=== PATIENT | male | born 1975 | race Caucasian/White ===

== ENCOUNTER 2020-03-27 09:54 | Emergency (ER) | payer OTHER ==
[~2020-03-27] VITALS: Ht 177.8 cm; Wt 120.2 kg
[~2020-03-27 09:54] MED LIST: AMARYL2 M1 PO; ANDROGEL75 GM TD; BACTRIM DS TAB1 EACH PO; CELEXA20 MG PO; FLEXERIL PO; GLUCOPHAGE500 MG PO; LISINOPRIL10 MG; METHADONE HCL 110 M1 PO; METHADONE HCL5 MG PO; NEURONTIN600 MG PO; PRINIVIL40 MG PO; ROBAXIN 750 MG750 MG PO; ULTRAM 50MG TAB50 MG PO; WELLBUTRIN 75 M75 M1 PO
[2020-03-27] MEDS ORDERED: LISINOPRIL2.5 MG (10:06)
[2020-03-27] MEDS ORDERED: INSULIN (10:07)
[2020-03-27 10:36] LABS: ABSOLUTE BASOPHILS 0.1 thou/uL (0.0-0.2); ABSOLUTE EOSINOPHILS 0.1 thou/uL (0.0-0.7); ABSOLUTE LYMPHOCYTES 1.9 thou/uL (0.8-5.3); ABSOLUTE MONOCYTES 0.8 thou/uL (0.0-1.2); ABSOLUTE NEUTROPHILS 7.9 thou/uL (1.6-8.1); BASOPHILS 0.7 %; HEMATOCRIT 37.1 % (42.0-52.0); HEMOGLOBIN 12.3 gm/dL (14.0-18.0); LYMPHOCYTES 17.9 %; MCH 28.8 pg (26.0-34.0); MCHC 33.1 g/dL (28.0-37.0); MONOCYTES 7.6 %; MPV 7.3 fl. (7.2-11.1); NUCLEATED RBCS 0 /100WBC; PLATELET COUNT* 294 thou/uL (150-400); POLYS 72.8 %; RBC 4.26 mil/uL (4.50-6.00); RDW-CV 15.9 % (10.5-14.5); WBC 10.8 thou/uL (4.0-11.0)
[2020-03-27 10:46] LABS: CALCIUM 9.7 mg/dL (8.5-10.1); CREATININE 2.4 mg/dL (0.6-1.3); POTASSIUM 5.6 mmol/L (3.5-5.1)
[2020-03-27 10:47] LABS: APTT 22.3 Seconds (25.0-31.3); PROTIME 10.5 Seconds (9.20-11.50)
[2020-03-27 10:59] LABS: ALBUMIN 3.9 g/dL (3.4-5.0); TOTAL BILIRUBIN 0.4 mg/dL (<0.1-1.0); TOTAL PROTEIN 8.3 g/dL (6.4-8.2)
[2020-03-27 13:53] VITALS: BP 107/74
--- NOTE | 2020-03-27 16:15 | EKG ---
[place] [address] ELECTROCARDIOGRAM REPORT Name: ALBERTO SNYDER Nicholas Room: [facility]#: [id number] Admission: 03/27/20 Attend Phys: Discharge: 03/27/20 Date of : 71 Date of Service: 03/27/20 1004 Report #: [id number] THIS REPORT FOR: //name// [facility] ED Test Date: 2020-03-27 Test Time: 10:04:33 Pat Name: ALBERTO SNYDER Department: Room: Gender: Folder Tier: [facility] : 1975 Requested By: Warren Diaz Order Number: [id number] MD: Yousuf Hickman Measurements Intervals [place] Rate: 116 P: 59 DC: 151 QRS: 65 QRSD: 106 T: 35 QT: 323 QTc: 449 Interpretive Statements Sinus tachycardia RSR' in V1 or V2, right VCD Compared to ECG 08/19/2016 07:30:40 Sinus rate has increased Electronically Signed On 03-27-2020 16:15:26 BOOK AUTHOR by Yousuf Hickman [email or web address] <ELECTRONICALLY SIGNED> By: Yousuf Hickman MD, [facility] 03/27/20 1615 1004 1004 Yousuf Hickman MD, [facility] /EPI
== END 2020-03-27 13:54 | disposition home or self-care (01) ==
LOC: M.ERS 09:54
PROVIDERS: Family Medicine
DX: T40.601A Poisoning by unspecified narcotics, accidental (unintentional), initial encounter (principal); R55 Syncope and collapse; I10 Essential (primary) hypertension; E11.9 Type 2 diabetes mellitus without complications; E78.5 Hyperlipidemia, unspecified; Z79.899 Other long term (current) drug therapy; Z88.0 Allergy status to penicillin; Y92.89 Other specified places as the place of occurrence of the external cause